=== PATIENT | male | born 1930 | race Caucasian/White ===

== ENCOUNTER 2017-01-13 10:33 | Inpatient (IN) | payer OTHER ==
[~2017-01-13] VITALS: Ht 180.3 cm; Wt 82.1 kg
[~2017-01-13 10:33] MED LIST: ALPRAZOLAM 0.0.25 M1 PO; ALPRAZOLAM 0.0.25 MG PO; ASPIRIN EC81 M1 PO; ATORVASTATIN CA40 MG PO; BYSTOLIC 5 MG5 MG PO; COCET PLUS TAB1 EACH PO; COLACE100 MG PO; ETODOLAC500 MG; FEVERALL650 MG RECTAL; FINASTERIDE5 MG PO; FISH OIL 1,001000 M2 PO; FUROSEMIDE 40 M40 M1 PO; GEMFIBROZIL 60600 MG PO; GLUCOPHAGE1000 MG; HCTZ; HYDROCHLOROTH12.5 M1 PO; HYDROCODON-ACE1 EACH; HYTRIN 5 M5 MG/1 CAP PO; KEFLEX500 MG PO; LACRILUBE; LASIX 40 MG TAB40 M2 PO; LEVOBUNOLOL 0.5%5 M1 OPHTHALMIC; LISINOPRIL-HCT1 EACH PO; LISINOPRIL2.5 MG PO; LISINOPRIL20 MG PO; LISINOPRIL40 MG PO; LOPID600 MG; LUMIGAN2.5 M1 INTRAOCULR; LUMIGAN2.5 ML; MILK OF MA2400 MG/10 PO; ONGLYZA5 MG; ONGLYZA5 MG PO; PRESERVISION T1 EACH PO; PROSCAR 5MG TABL5 M1 PO; REFRESH LACRI-3.5 GM INTRAOCULR; REFRESH LIQUIGEL; REFRESH OPTIVE10 M1 INTRAOCULR; TERAZOSIN HCL10 MG PO; TOPROL XL25 MG PO; TRADJENTA5 MG PO; TYLENOL325 MG PO; ULTRAM 50MG TAB50 MG PO; XALATAN2.5 ML OPHTHALMIC; XANAX 0.5 MG0.5 MG PO; ZOCOR 20 MG TAB20 M1; ZOCOR20 MG PO; ZOLOFT 50 MG TA50 M1 PO; ZOLOFT50 MG PO
[2017-01-13 15:00] VITALS: BP 106/50
--- NOTE | 2017-01-13 16:47 | NUR ---
ASSUMMED CARE OF PT UPON ADMISSION TO UNIT, PT ALERT AND ORIENTED, [place] AND HAS VISUAL PROBLEMS, PT DENIES PAIN, PT HAS WEAKNESS IN ALL EXTREMITIES BUT WORSE ON LEFT SIDE, PT HAS SKIN TEAR ON LEFT ARM, DRESSING CHANGED, BRUISING NOTED, GB WALKER, ALARMS ON FOR SAFETY, WAS INCONTINENT OF SMALL AMOUNT OF STOOL AND HAD STOOL ON TOILET, PT TRANSFERS WITH MOD ASSIST GB WALKER, EVALS DONE BY OT AND PT, ADMISSION ASSESSMENT COMPLETE, PT NOTED TO HAVE OCCASIONAL COUGH, HOURLY ROUNDING COMPLETED, WILL MAYNORNUE TO MONITER.
[2017-01-13 19:50] VITALS: BP 138/61
--- NOTE | 2017-01-14 01:32 | NUR ---
ASSUMED CARE @ 1922-01/13-MONDAY.SITS IN RECLINER WATCHING TV.WEARS ONLY RIGHT HEARING AID BUT STILL DIFFICULT TO COMMUNICATE W/ PATIENT DUE TO HEARING LOSS-LEFT EAR.CLAIMS HIS LEFT HEARING AID IS BROKEN & AT HOME.EDEMA-+1 PITTING LEFT ANKLE & LEFT FOOT.MEPILEX DRSG LEFT FOREARM.SEE PAIN MANAGEMENT @ 2013. TAKES PILLS WHOLE ONE @ A TIME W/ H20.ON HOURLY ROUNDS.AWAKE FROM 1999 TO 2199.ASSISTED TO BED @ 2154.HOB UP.BED ALARM PUT ON @ 2154.URINAL W/IN REACH.
--- NOTE | 2017-01-14 05:38 | NUR ---
SLEEPING SINCE 2300.USED URINAL X4.TOOK ONE PACKAGE RITZ PEANUT BUTTER CRACKERS W/ 120 ML APPLE JUICE HS SNACKS.TURNS SELF @ NIGHT.
[2017-01-14 05:50] LABS: HEMOGLOBIN 10.7 gm/dL (14.0-18.0); MCH 31.6 pg (26.0-34.0); MCHC 33.3 g/dL (28.0-37.0); MCV 94.7 fL (80.0-100.0); MPV 8.5 fl. (7.2-11.1); RBC 3.38 mil/uL (4.50-6.00); RDW-CV 13.8 % (10.5-14.5); WBC 5.5 thou/uL (4.0-11.0)
[2017-01-14 05:58] LABS: POTASSIUM 4.7 mmol/L (3.5-5.1)
[2017-01-14 08:00] VITALS: BP 138/58
--- NOTE | 2017-01-14 18:15 | NUR ---
ASSUMMED CARE OF PT AT 0730, PT ALERT AND ORIENTED, VERY [place] AND HAS DECREASED VISION, PT TRANSFERS WITH MOD ASSIST OF 1, NEEDS LIFTING ASSIST AND STEADYING ASSIT, CUEING, PT DENIES PAIN THIS SHIFT, EDEMA IN LE NOTED, PT DENIES NAUSEA AND TAKING FOOD AND FLUIDS WELL, PARTICIPATED IN ALL THERAPIES, PT QUESTIONING HIS AM EYE DROPS, STATES HE SHOULD BE GETTING AN EYE DROP EVERY MORNING, AND DAUGHTER CALLED AND NOTED THAT TIMOLOL HAD NOT BEEN ORDERED FOR PT, ORDER RECIEVED, REQUESTED FAMILY TO BRING IN EYE DROP, BROUGHT IN THIS PM BUT VERY LITTLE IN BOTTLE, FAMILY REQUESTS THAT PHARMACY SUPPLY EYE DROP STARTING ON MONDAY, MESSAGE SENT TO PHARMACY, FAMILY ALSO CONCERNED TO WHY PT ON DIABETIC DIET HE HAD BEEN ON REGULAR DIET, FAMILY STATED HIS BLOOD SUGARS WERE ALL NORMAL OVER THE LAST WEEK AND JUST HIGH LAST EVENING, EXPLAINED TO FAMILY IMPORTANCE OF DIET FOR SUGAR CONTROL, FAMILY WOULD LIKE TO SPEAK WITH CIGARETTE VENDOR, WILL LEAVE MESSAGE FOR CIGARETTE VENDOR TO CONTACT FAMILY, HOURLY ROUNDING COMPLETED, ASSESSMENT COMPLETE, WILL CONTINUE TO MONITER.
[2017-01-14 20:00] VITALS: BP 132/56
--- NOTE | 2017-01-15 05:24 | NUR ---
ASSUMED CARES AT 1920. PT ALREADY IN BED. ALERT AND ORIENTED. PLEASANT. [place]. DENIES ANY PAIN. TAKES PILLS ONE AT A TIME WITH WATER. HS SNACK GIVEN. MEPILEX TO LEFT FOREARM SKIN TEAR INTACT. PT USED URINAL AND RN EMPTIED. SLEPT MOST OF THE NIGHT. NO COMPLAINTS. CALL LIGHT IN REACH AND BED ALARM ON.
[2017-01-15 08:10] VITALS: BP 133/62
--- NOTE | 2017-01-15 16:40 | NUR ---
ASSUMED CARE AT 0730 PATIENT ALERT/ORIENTED/FORGETFUL, [place] WEARS HEARING AIDE TO RIGHT EAR, BLIND IN RIGHT EYE. UP WITH MOD ASSIST OF ONE AND WALKER, WALKED IN HALLWAY X3 THIS SHIFT, SPONGE BATH TAKEN THIS AM AND DRESSED. BED/CHAIR ALARMS IN PLACE, TO DINING ROOM FOR MEALS. HOURLY ROUNDING COMPLETED. CALL LIGHT IN REACH. CONTINUE WITH CURRENT PLAN OF CARE
[2017-01-15 20:00] VITALS: BP 153/46
[2017-01-16 04:13] LABS: HEMATOCRIT 32.6 % (42.0-52.0); HEMOGLOBIN 10.8 gm/dL (14.0-18.0); MCH 31.2 pg (26.0-34.0); MCV 94.6 fL (80.0-100.0); MPV 8.3 fl. (7.2-11.1); RBC 3.45 mil/uL (4.50-6.00); WBC 6.7 thou/uL (4.0-11.0)
[2017-01-16 04:32] LABS: CALCIUM 8.1 mg/dL (8.5-10.1); MAGNESIUM 1.7 mg/dL (1.8-2.4); POTASSIUM 4.9 mmol/L (3.5-5.1)
--- NOTE | 2017-01-16 06:17 | NUR ---
ASSUMED CARES AT 1915. PT ALREADY IN BED. ALERT AND ORIENTED. [place]. DENIES ANY PAIN, SOA, DEE, N/V. TAKES PILLS ONE BY ONE WITHOUT ANY ISSUES. PT USED URINAL BUT DID HAVE URINARY ACCIDENTS X 2 WHICH WERE MOST LIKELY DUE TO SPILLING URINAL. RN ASSISTED WITH CHANGING. LEFT FOREARM MEPILEX INTACT. DID NOT GET UP DURING THE NIGHT. USED CALL LIGHT APPROPRIATELY. BED ALARM ON.
[2017-01-16 07:30] VITALS: BP 146/62
--- NOTE | 2017-01-16 14:40 | NUR ---
Nutrition: Consult received for DM diet educ for pt's family. Family was not in room at time of visit today. Left handouts for family to peruse. Spoke with pt about his BG. He stated it usually runs 80s to 130. He does not restrict his diet much; only restriction is not adding table sugar to things, so he uses aspartame instead. Per RN, family has some concerns about pt's BG and diet. RD will attempt to see pt's family again this week when they are visiting. Handouts were left for them on basic CHO education. Pt appears at low nutrition risk at this time. Will follow weekly.
--- NOTE | 2017-01-16 15:35 | NUR ---
ASSUMED CARE AT 0730. ALERT ORIENTED, PLEASANT COOPERATIVE. HX OF CVA L SIDE WEAKNESS. TRANSFERS WITH SBA G BELT WALKER. FROM BED TO W/C NEEDS CUES FOR SAFETY. USES CALL LIGHT APPROPRIATELY FOR ASSIST. BED AND CHAIR ALARM FOR PT. SAFETY. FEEDS SELF WITH SET UP OPEN CONTAINERS, HX OF MACULAR DEGENERATION ALSO [place] BUT HAS BEEN ABLE TO UNDERSTAND THIS STAFF WHEN SPOKEN TO OR ASKED QUESTIONS. DENIES PAIN OR REQUESTS. TAKES MEDS ONE AT A TIME WITH WATER WITHOUT DIFFICULTY. PARTICIPATING IN THERAPIES. FAMILY HERE VISITING AT LUNCH AND THIS AFTERNOON.
--- NOTE | 2017-01-16 17:08 | NUR ---
SW met with pt to complete initial assessment, introduce self, and SW role. Pt dtr Thu Hanson [phone] and son in law were present; they live in [place]. Pt was alert and oriented to self, not talkative. Pt dtr answered the questions to help complete the assessment. Pt has a RW. Pt has had HH services years ago. Pt signed consent form. Pt/pt family goal for pt to return home with pt . SW to continue to follow to assist with safe dc planning.
[2017-01-16 21:53] VITALS: BP 158/63
--- NOTE | 2017-01-17 05:12 | NUR ---
ASSUMED CARE 1919. PT ALERT AND ORIENTED. PLEASANT. DENIES ANY NEEDS FOR PAIN MED. HE IS A MOD ASSIST WITH GAIT BELT AND WALKER. SLIGHT LIFTING ASSIST. UP TO BATHROOM DURING THE NIGHT. PT DOES NOT WANT TO USE URINAL. TAKES PILLS WITHOUT ISSUES. NO COMPLAINTS. USE CALL LIGHT APPROPRIATELY. BED ALARM ON.
[2017-01-17 08:16] VITALS: BP 132/60
--- NOTE | 2017-01-17 10:30 | NUR ---
RICARDO received message from Tanya with [facility] requesting an update/review today by noon. RICARDO called and left a message for Tanya that team conference is on Monday and SW would have more information at that time. RICARDO faxed info for initial review and RICARDO will continue to follow to assist with safe dc planning.
[2017-01-17 12:07] VITALS: BP 145/53
--- NOTE | 2017-01-17 12:43 | NUR ---
ASSUMED CARE AT 0730. ALERT ORIENTED,PLEASANT COOPERATIVE. HX OF CVA L SIDE WEAKNESS. SITTING UP IN RECLINER AT BEDSIDE FOR BREAKFAST. FEEDS SELF APPETITE GOOD. SET UP PT. IS BLIND RT. EYE MACULAR DEGENERATION L EYE. TRANSFERS WITH SBA G BELT WALKER CUES FOR DIRECTION. USES CALL LIGHT FOR ASSIST AND HAS BED CHAIR ALARM FOR PT. SAFETY. ABLE TO MOVE ALL EXTREMITIES COSMETICIAN EQUAL. DENIES PAIN OR REQUESTS. TAKES MEDS WITH WATER ONE AT A TIME WITHOUT DIFFICULTY. PARTICIPATING IN THERAPIES. AMBULATES TO BR TO VOID IN TOILET ABLE TO DO HYGEINE AND CLOTHING ADJUSTMENTS.
--- NOTE | 2017-01-17 13:11 | NUR ---
AT 1207 PT. HAD C/O NUMBNESS L ARM WHICH IS HIS WEAK SIDE. 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 ABLE TO RAISE L ARM ABOVE HIS HEAD SLOWLY WITHOUT DIFFICULTY. DENIES PAIN ANYWHERE. VS WERE 145/55 PULSE 55 AND REGULAR O2 SAT 98% RA. FEEDING SELF LUNCH APPETITE GOOD. DAUGHTER CARMELA HERE UPDATED HER ON PT. C/O NUMBNESS. DR. LOZANO NOTIFIED OF PT. STATUS NO NEW ORDERS CONTINUE TO MONITOR. SENT PTS. SUPPLY OF TIMOPTIC HOME WITH CARMELA TODAY. BY 1245 PT. STATES ARM FEELS DECREASED NUMBNESS BACK TO NORMAL. DAUGHTER HERE AT THAT TIME.
--- NOTE | 2017-01-17 17:46 | NUR ---
PT. CONTINUED TO PARTICIPATE IN THERAPIES THIS AFTERNOON. NO FURTHER C/O NUMBNESS L ARM. 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 HAS HAD VISITORS THIS AFTERNOON UP IN RECLINER AFTER THERAPIES. TO DR ALEJANDRE W/C FOR SUPPER MEAL.
[2017-01-17 19:45] VITALS: BP 131/42
[2017-01-18 01:36] LABS: URINE BILIRUBIN NEGATIVE (Negative); URINE BLOOD NEGATIVE (Negative); URINE CLARITY CLEAR; URINE COLOR YELLOW; URINE GLUCOSE-RANDOM NEGATIVE (Negative); URINE KETONES NEGATIVE (Negative); URINE LEUKOCYTES-REFLEX NEGATIVE (Negative); URINE NITRITE-REFLEX NEGATIVE (Negative); URINE PROTEIN NEGATIVE (Negative); URINE SPECIFIC GRAVITY <= 1.005 (1.005-1.030); URINE UROBILINOGEN 0.2 E.U./dl (0.2-1.0)
[2017-01-18 04:55] LABS: HEMATOCRIT 31.6 % (42.0-52.0); HEMOGLOBIN 10.6 gm/dL (14.0-18.0); MCH 31.4 pg (26.0-34.0); MCHC 33.5 g/dL (28.0-37.0); MCV 93.7 fL (80.0-100.0); MPV 8.1 fl. (7.2-11.1); RBC 3.38 mil/uL (4.50-6.00); RDW-CV 13.4 % (10.5-14.5); WBC 7.4 thou/uL (4.0-11.0)
[2017-01-18 05:19] LABS: CALCIUM 8.1 mg/dL (8.5-10.1)
--- NOTE | 2017-01-18 05:19 | NUR ---
ASSUMED PT CARE AT 1930. PT ALERT AND ORIENTED, PLEASANT AND COOPERATIVE WITH CARES. HX OF CVA WITH LEFT SIDE WEAKNESS. TWO TYLENOL AT HS FOR RIGHT HIP PAIN. PT IS BLIND IN RIGHT EYE AND HAS MACULAR DEGENERATION IN LEFT EYE. PT UP WITH MOD ASSIST, GAIT BELT AND WALKER. TAKES PILLS WHOLE ONE AT A TIME WITH WATER. USES CALL LIGHT APPROPRIATELY. CALL LIGHT AND FREQUENTLY USED ITEMS WITHIN REACH. BED ALARM ON FOR SAFETY. HOURLY ROUNDING IN PROGRESS, WILL CONTINUE TO MONITOR.
[2017-01-18 07:38] VITALS: BP 130/55
--- NOTE | 2017-01-18 13:29 | CON ---
[address] [address] CONSULTATION Name: LIVAN GONSALES Room: [address] IN M.R.#: [id number] Admission: 01/13/17 Attend Phys: Marissa Quintana DO Discharge: Date of : 32 Report #: [id number] THIS REPORT FOR: //name// CC: Lukas Quintana This is an 86-year-old right-hand dominant male who is status post cerebrovascular accident with residual aphasia, dysphagia, and hemiparesis. He is also blind in the right eye, hard of hearing and has macular degeneration in the left eye. His previous level of function was modified independent to independent with activities of daily living and current level of function is [id number] assistance of 1-2 depending on therapy, activity and time of day. He does have multiple medical comorbidities requiring daily medical care. Estimated length of stay is 19-21 days with discharge disposition to the home setting where he has supervision and assistance of his spouse and multiple family members. He does live in a house. Medical prognosis is good. Rehabilitation prognosis is good. Physical therapy will see the patient 60-90 minutes per day, 5 days per week, working on upper and lower body strength, balance, coordination, navigation. Occupational therapy will work with the patient 60-90 minutes per day, 5 days per week, working on upper and lower body strength, balance, coordination, navigation, bathing, dressing, and toileting. Speech and language pathology will work with the patient on memory, comprehension, dysphagia and aphasia, this will be 30-90 minutes per day, 5 days per week. This is an overall plan of care, may change from time to time, we will team weekly and make changes to plan of care as needed. <ELECTRONICALLY SIGNED> By: Marissa Quintana DO 01/18/17 1329 [id number] [id number] Quintana DO /nt
--- NOTE | 2017-01-18 15:45 | NUR ---
ASSUMED CARE AT 0730 PATIENT ALERT/ORIENTED, VERY [place] HAS RIGHT HEARING AIDE IN PLACE, CALL LIGHT IN REACH, BED/CHAIR ALARMS IN PLACE, UP WITH ASSIST OF ONE WITH GAIT BELT/WALKER. PARTICIPATED IN ALL THERAPIES TODAY, HOURLY ROUNDING COMPLETED, TO DINING ROOM FOR MEALS. CONTINUE WITH CURRENT PLAN OF CARE
[2017-01-18 20:58] VITALS: BP 132/60
--- NOTE | 2017-01-19 05:45 | NUR ---
ASSUMED PT CARE AT 1930. PT ALERT AND ORIENTED X4, POLITE AND COOPERATIVE WITH CARES. PT VERY [place]. HX OF CVA WITH LEFT SIDE WEAKNESS. DENIES PAIN. PT IS BLIND IN RIGHT EYE AND HAS MACULAR DEGENERATION IN LEFT EYE. PT UP WITH MOD ASSIST, GAIT BELT AND WALKER. TAKES PILLS WHOLE ONE AT A TIME WITH WATER WITHOUT DIFFICULTY. USES CALL LIGHT APPROPRIATELY. CALL LIGHT AND FREQUENTLY USED ITEMS WITHIN REACH. BED ALARM ON FOR SAFETY. HOURLY ROUNDING IN PROGRESS, WILL CONTINUE TO MONITOR.
[2017-01-19 07:38] VITALS: BP 128/56
--- NOTE | 2017-01-19 11:18 | NUR ---
RICARDO called pt dtr Thu Hanson [phone] to review team conference summary and discuss dc planning options specifically the level of assistance that would be available to pt at home. Pt dtr did not answer so SW left detailed message asking for return call. Nurse informed RICARDO that nurse spoke with pt family about team wanting another week for pt to continue rehab and then to reassess pt length of stay during team conference on Monday. RICARDO called pt Karuna and left a message asking for return call. Karuna called SW back and RICARDO discussed plans and asked about her ability to be able to care for pt. Karuna said she is 82, and not able to do any lifting of pt if pt were to need that. RICARDO reviewed PT, OT, ST reports from team: Pt needing min assist to mod assist with bed mobility and transfers to and from bed/chair/wc, pt needing min assist with walking with a front wheeled walker, pt needing mod assist with stairs; pt tried 3 stairs with therapy. Also, with OT, pt needing min to mod assist with toileting, mod assist with toilet transfers, supervision grooming, mod assist with bathing, min assist with tub/shower transfer, min assist with upper body dressing, and max assist with lower body dressing. ST reported pt needing min assist with comprehension, supervision with expression, min assist with problem solving, and min assist with memory. Pt barriers to dc are weakness, balance, and needing cues to perform tasks. Pt explained that she does not feel that she could care for the pt at this point and that pt was independent with ADLs and mobility prior to this second stroke. Pt said that she would try to find DME that insurance does not cover like toilet seat riser and grab bars to try to prepare for a safer environment as needed but that she would hope that pt could be able to be closer to independent with tasks prior to dc home; she said she saw him in therapy yesterday and that she knew she would not be able to provide as much assistance as he needed since he was unable to go to the bathroom on his own, etc. SW to continue to follow to assist with safe dc planning. SW to fax above information to pt insurance for review/update as needed.
--- NOTE | 2017-01-19 16:14 | NUR ---
ASSUMED CARE AT 0730 PATIENT ALERT/ORIENTED, VERY [place] AND BLIND IN RIGHT EYE, ABLE TO MAKE ALL NEEDS KNOWN, NO COMPLAINTS OF PAIN THIS SHIFT, UP WITH ASSIST OF ONE WITH GAIT BELT AND WALKER, PARTICIPATED IN ALL THERAPIES TODAY, TO DINING ROOM FOR MEALS, BED/CHAIR ALARMS IN PLACE, HOURLY ROUNDING COMPLETED. CONTINUE WITH CURRENT PLAN OF CARE
[2017-01-19 20:32] VITALS: BP 131/50
--- NOTE | 2017-01-19 22:07 | NUR ---
ASSUMED CARE AT 1930. PATIENT S/P CVA. WAS IN RECLINER AT BEGINNING OF SHIFT, ASSISTED TO BED. UP WITH ONE, GAIT BELT, WALKER. VERY LOWER BRULE. BLIND IN RT EYE. MAKES NEEDS KNOWN. ADMINISTERED HS EYE GTTS PER SELF. MEDICATED FOR PAIN WITH APAP. CHANGED INTO GOWN AT HS. WILL HELP WITH URINAL NEEDED. HAD HS SNACK OF BRE CRACKERS AND SHERBET. HOURLY ROUNDS CONTINUE, CALL LITE IN REACH. BED ALARM ON.
--- NOTE | 2017-01-20 05:56 | NUR ---
SLEPT MOST OF THE NIGHT EXCEPT TO VOID. AMBULATED TWICE TO BATHROOM WITH ASSIST. PREFERS GOING TO TOILET OVER USING URINAL. EYE GTTS GIVEN PER HIS REQUEST, SEE MAR. TAKES PILLS WHOLE WITH WATER. NO FURTHER C/O. HOURLY ROUNDS CONTINUE. BED ALARM ON. CALL LITE IN REACH. WATCHING NEWS ON TV.
[2017-01-20 07:30] VITALS: BP 135/61
--- NOTE | 2017-01-20 18:25 | NUR ---
PT PARTICIPATED IN ALL THERAPIES. PT REPORTS PAIN IS WELL CONTROLLED WITH PAIN MEDS. PT HAS GOOD APPETITE.
[2017-01-20 20:30] VITALS: BP 131/41
--- NOTE | 2017-01-21 05:30 | NUR ---
ASSUMED CARES AT 1920. ALERT AND ORIENTED. PLEASANT. TYLENOL GIVEN FOR RIGHT HIP PAIN. HE IS A MIN ASSIST WITH GAIT BELT AND WALKER. UP TO BATHROOM FEW TIMES DURING THE NIGHT. RN ASSISTED WITH ONE SIDED DRESSING. HS SNACK GIVEN. SLEPT OFF AND ON. CALL LIGHT IN REACH. BED ALARM ON.
[2017-01-21 08:00] VITALS: BP 130/46
[2017-01-21 08:39] LABS: HEMATOCRIT 34.1 % (42.0-52.0); HEMOGLOBIN 11.5 gm/dL (14.0-18.0); MCH 31.7 pg (26.0-34.0); MCHC 33.8 g/dL (28.0-37.0); MCV 93.7 fL (80.0-100.0); MPV 8.4 fl. (7.2-11.1); RBC 3.64 mil/uL (4.50-6.00); WBC 7.2 thou/uL (4.0-11.0)
--- NOTE | 2017-01-21 17:08 | NUR ---
pt has participated with therapies and calls for assist to bathroom. pt ambulates with walker,gaitbelt and min assist of 1. pt continent of urine and has had bm today. pt denies pain. pt eats meals after tray set up due to poor vision.pt has visited with family this afternoon.pt continues to progress towards goals and hourly rounding continues.
[2017-01-21 20:31] VITALS: BP 154/62
--- NOTE | 2017-01-22 05:25 | NUR ---
ASSUMED PT CARE AT 1920. PT ALERT AND ORIENTED, POLITE AND COOPERATIVE WITH CARES. PT IS EXTREMELY [place], WEARS ONE HEARING AID. TYLENOL AT HS FOR RIGHT HIP PAIN. HS SNACK GIVEN. UP WITH MIN ASSIST WITH GAIT BELT AND WALKER. USES CALL LIGHT APPROPRIATELY. BED ALARM ON FOR SAFETY. CALL LIGHT AND FREQUENTLY USED ITEMS WITHIN REACH. HOURLY ROUNDING IN PROGRESS, WILL CONTINUE TO MONITOR.
[2017-01-22 08:01] VITALS: BP 145/57
--- NOTE | 2017-01-22 15:51 | NUR ---
PT HAS EATEN MEALS IN DINNINGROOM AND AMBULATES WITH WALKER AND MIN ASSIST OF 1 WITH GAITBELT.PT AMBULATED PAST NURSING STATION WITH FAIRLY STEADY GAIT. PRN FOR RT. HIP PAIN GIVEN X2 WITH GOOD EFFECT AND HEATING PAD APPLIED THIS AFTERNOON. PT VOIDS WELL AND CALLS FOR ASSIST TO BATHROOM. PT TOLERATES MEALS AND EATS WELL. AND DAUGHTER HERE TO VISIT THIS AFTERNOON. CONCERNED ABOUT PT COMMING HOME TOO SOOM SHE REPORTS HIM FALLING 4 TIMES RECENTLY AND SHE IS NOT ABLE TO HELP HIMWITH AMBULATION. AND DAUGHTER ALSO CONCERNED ABOUT PT WEATHER PT IS RECEIVING SHOWERS WHILE HERE. NURSING HAS REVIEWED OT NOTES AND WAS ABLE TO ASSURE FAMILY THAT PT HAS SHOWERED AT LEAST 2 TIMES AND RECEIVED ASSIST WITH BATHING AT SINK WITH OT AND DIRECTIONS.PT IS CONTINENT OF B+B AND WEARS REGULAR CLOTHING AND IS ABLE TO SNAP BUTTONS,ZIP ZIPPER AND BUTTON JEANS WITH SOME EXTRA TIME. PT IS [place] WITH BIL[place] HEARING AIDS AND UNDERSTANDS DIRECTIONS AND IS APPROPIATE. PT PROGRESSES TOWARDS GOALS AND HOURLY ROUNDING CONTINUES.
[2017-01-22 19:45] VITALS: BP 115/64
--- NOTE | 2017-01-23 05:36 | NUR ---
ASSUMED PT CARE AT 1930. PT ALERT AND ORIENTED, POLITE AND COOPERATIVE WITH CARES. PT IS EXTREMELY [place], ONLY WEARS ONE HEARING AID. NO PRN PAIN MEDS THIS SHIFT. HEATING PAD TO LEFT SHOULDER. HS SNACK GIVEN. UP WITH MIN ASSIST, GAIT BELT AND WALKER. USES CALL LIGHT APPROPRIATELY. BED ALARM ON FOR SAFETY. CALL LIGHT AND FREQUENTLY USED ITEMS WTIHIN REACH. HOURLY ROUNDING IN PROGRESS, WILL CONTINUE TO MONITOR.
[2017-01-23 07:30] VITALS: BP 131/51
--- NOTE | 2017-01-23 16:41 | NUR ---
PT PARTICATES IN ALL THERAPIES. DENIES PAIN. GOOD APPETITE.
[2017-01-23 20:00] VITALS: BP 127/47
--- NOTE | 2017-01-24 05:16 | NUR ---
ASSUMED PT CARE AT 1930. PT ALERT AND ORIENTED, POLITE AND COOPERATIVE WITH CARES. 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 PRN TYLENOL FOR RIGHT HIP PAIN. HEATING PAD TO RIGHT SHOULDER AND THEN TO RIGHT HIP. MEPILEX TO LEFT FOREARM SKIN TEAR C/D/I. HS SNACK GIVEN. UP WITH MIN ASSIST, GAIT BELT AND WALKER. USES CALL LIGHT APPROPRIATELY. BED ALARM ON FOR SAFETY. CALL LIGHT AND FREQUENTLY USED ITEMS WITHIN REACH. HOURLY ROUNDING IN PROGRESS, WILL CONTINUE TO MONITOR.
[2017-01-24 08:09] VITALS: BP 115/74
--- NOTE | 2017-01-24 18:30 | NUR ---
HEATING PAD TO R HIP AND TYLENOL GIVEN WITH STATED RELIEF ON REASSESSMENT FOR HIP PAIN. PT C/O FEELING CHAFED IN GROIN, BARRIER CREAM GIVEN. PT UP WITH MIN ASSIST USING GAIT BELT AND WALKER. PT ABLE TO MAKE NEEDS KNOWN, CALL LIGHT IN REACH
[2017-01-24 20:30] VITALS: BP 107/56
--- NOTE | 2017-01-24 20:30 | NUR ---
SITTING UP IN CHAIR AND WATCHING TV. DENIES DISCOMFORT. TOOK MEDS WHOLE ONE AT A TIME WITH WATER. SNACK PROVIDED.
[2017-01-25 08:31] VITALS: BP 138/85
[2017-01-25 15:12] LABS: HEMATOCRIT 33.5 % (42.0-52.0); HEMOGLOBIN 11.3 gm/dL (14.0-18.0); MCH 31.7 pg (26.0-34.0); MCHC 33.6 g/dL (28.0-37.0); MCV 94.4 fL (80.0-100.0); MPV 8.5 fl. (7.2-11.1); RBC 3.55 mil/uL (4.50-6.00); RDW-CV 13.9 % (10.5-14.5); WBC 6.6 thou/uL (4.0-11.0)
[2017-01-25 15:30] LABS: ALBUMIN 3.7 g/dL (3.4-5.0); CALCIUM 8.2 mg/dL (8.5-10.1); CREATININE 1.2 mg/dL (0.6-1.3); POTASSIUM 5.7 mmol/L (3.5-5.1); TOTAL BILIRUBIN 0.3 mg/dL (<0.1-1.0)
--- NOTE | 2017-01-25 15:50 | NUR ---
Team conference summary review note: RICARDO met with pt, pt son in law and pt grandson in the room. SW reviewed team conference summary with pt and pt family. Plan for team to reassess pt length of stay during team conference on Thursday 02/01. RICARDO explained SW sending update to pt insurance who will want a dc plan soon. Possible need for more assistance in the home for pt and pt or for pt/pt family to think about intermodal customer service care or assisted living facility in the future. Pt and pt family understanding and in agreement with plan. Pt dtr Thu also discussed with SW the dc planning and RICARDO reviewed team conference summary again with pt dtr. SW to continue to follow to assist with safe dc planning.
--- NOTE | 2017-01-25 18:46 | NUR ---
ASSUMED CARE AT 0730 PATIENT ALERT/ORIENTED, PAIN MEDS GIVEN FOR RIGHT HIP PAIN WITH GOOD RELIEF, HEATING PAD TO RIGHT HIP, UP WITH ASSIST OF ONE AND WALKER/GAIT BELT, BED/CHAIR ALARMS IN PLACE, HOURLY ROUNDING COMPLETED, CALL LIGHT IN REACH. PARTICIPATED IN ALL THERAPIES TODAY. CONTINUE WITH CURRENT PLAN OF CARE
[2017-01-25 20:13] VITALS: BP 132/55
--- NOTE | 2017-01-25 21:47 | NUR ---
ASSUMED CARE AT 1930. PATIENT S/P CVA. VERY [place]. RESTING IN RECLINER UNTIL AROUND 2099. UP WITH MOD LIFTING ASSIST FROM RECLINER. AMB TO TOILET WITH GAIT BELT AND WALKER. NEEDED LIFTING ASSIST FROM TOILET, BUT PATIENT ABLE TO ADJUST CLOTHING. NEEDS ASSIST WITH ONE LEG INTO BED. TOOK OWN TEETH OUT AND PLACED IN WATER WITH CLEANSING TABLET. WILL REMOVE OWN HEARING AIDES, REFUSES TO PUT THEM IN A CONTAINER. EYE GTTS GIVEN PER HOME SCHEDULE, SEE APR. HEATING PAD TO RIGHT HIP. TOOK SHERBET AND BRE CRACKERS FOR HS SNACK. HOURLY ROUNDING CONTINUES. CALL LITE IN REACH. BED ALARM ON.
--- NOTE | 2017-01-26 05:44 | NUR ---
SLEPT MOST OF THE NIGHT. UP TO VOID PER TOILET ONCE. STILL NEEDS MOD LIFTING ASSIST TO RISE FROM BED OR TOILET. ONCE STANDING ABLE TO AMBULATE ADEQUATELY USING WALKER. TURNS SELF. NEEDS HELP GETTING LEFT LEG INTO BED. DENIES PAIN. HOURLY ROUNDS CONTINUE. BED ALARM ON. CALL LITE IN REACH.
[2017-01-26 06:45] LABS: ALBUMIN 3.3 g/dL (3.4-5.0); CALCIUM 7.9 mg/dL (8.5-10.1); TOTAL BILIRUBIN 0.3 mg/dL (<0.1-1.0)
[2017-01-26 08:59] VITALS: BP 109/45
--- NOTE | 2017-01-26 17:48 | NUR ---
ASSUMED CARE AT 0730 PATIENT ALERT/ORIENTED, UP WITH ASSIST OF ONE AND WALKER, TYLENOL GIVEN THIS AM FOR RIGHT HIP PAIN WITH GOOD RELIEF, ALSO USES HEATING PAD. HOURLY ROUNDING COMPLETED, CALL LIGHT IN REACH, BED/CHAIR ALARMS IN PLACE. PARTICIPATED IN ALL THERAPIES TODAY, TO DINING ROOM FOR MEALS. CONTINUE WITH CURRENT PLAN OF CARE
[2017-01-26 22:00] VITALS: BP 126/44
--- NOTE | 2017-01-27 04:47 | NUR ---
ASSUMED PT CARE AT 1930. PT S/P CVA. VERY [place] BUT HAS BILATERAL HEARING AIDS. PT SITTING UP WATCHING TELEVISION UNTIL 0. UP WITH MOD LIFTING ASSIST FROM RECLINER. AMBULATES TO TOILET WITH GAIT BELT AND WALKER. NEEDS LIFTING ASSIST FROM TOILET BUT ADJUSTS OWN CLOTHING. PT CAN LIFT BOTH LEGS INTO BED. EYE GTTS GIVEN PER HOME SCHEDULE. HEATING PAD TO RIGHT HIP. HS SNACK GIVEN. CALL LIGHT AND FREQUENTLY USED ITEMS WITHIN REACH. BED ALARM ON FOR SAFETY. HOURLY ROUNDING IN PROGRESS, WILL CONTINUE TO MONITOR.
--- NOTE | 2017-01-27 05:37 | NUR ---
PT UP ONCE TO BATHROOM AT 0500 WANTED TO STAY UP FOR THE DAY. MORNING MEDS GIVEN ALONG WITH PRN TYLENOL PER PT REQUEST. PT WATCHING TELEVISION. BED ALARM FOR SAFETY. HOURLY ROUNDING IN PROGRESS, WILL CONTINUE TO MONITOR.
[2017-01-27 08:00] VITALS: BP 115/55
--- NOTE | 2017-01-27 11:41 | NUR ---
AM ASSESSMENT AND VITAL SIGNS COMPLETED DOCUMENTED. PT TRANSFERRED FROM WHEELCHAIR TO RECLINER WITH STAND BY ASSIST. NO C/O PAIN OR DISCOMFORT THIS AM. PT CONTINUES TO PROGRESS. FALL PRECAUTIONS AND HOURLY ROUNDING OBSERVED.
[2017-01-27 20:22] VITALS: BP 133/65
--- NOTE | 2017-01-27 23:30 | NUR ---
ASSUMED CARE AT 1929. S/P CVA. PATIENT IN DINING ROOM, AND WALKED FROM THERE TO HIS ROOM. ASSISTED WITH HS CARES AT 2129. UP WITH MOD LIFTING ASSIST TO RISE FROM RECLINER AND TO RISE FROM TOILET, GAIT BELT AND WALKER. VOIDS PER TOILET. ABLE TO ADJUST CLOTHES AND DO HYGIENE. TAKES PILLS WITH WATER. VERY [place]. MAKES NEEDS KNOWN. TURNS SELF. CALL LITE IN REACH. BED ALARM ON. HOURLY ROUNDING CONTINUES.
--- NOTE | 2017-01-28 06:21 | NUR ---
SLEPT MOST OF THE NIGHT UNTIL AROUND 0515. INSISTED ON GETTING UP AT THAT TIME. SITTING IN RECLINER. VOIDED PER TOILET. EXPLAINED THAT HE GETS THERAPY, HE IS SCHEDULED FIRST FOR OT. NOTE LEFT FOR THERAPIST THAT HE WANTS THERAPY EARLIER IF POSSIBLE. HOURLY ROUNDS CONTINUE. CALL LITE IN REACH.
[2017-01-28 07:59] VITALS: BP 105/49
--- NOTE | 2017-01-28 09:54 | NUR ---
AM ASSESSMENT AND VITAL SIGNS COMPLETED DOCUMENTED. PT WAS UP EARLY THIS AM AND HAS DONE ADL's WITH OT. PT IS INDEPENDENT WITH EATING AND HAS A GOOD APPETITE. NO C/O PAIN OR DISCOMFORT AT THIS TIME. FALL PRECAUTIONS AND HOURLY ROUNDING CONTINUE.
--- NOTE | 2017-01-28 18:00 | NUR ---
PT REMAINS STABLE AND WITHOUT COMPLAINTS. FAMILY CAME TO VISIT THIS AFTERNOON, THEY CONTINUE TO BE INVOLVED IN HIS TREATMENT AND PLAN OF CARE. PT AMBULATES SHORT DISTANCES WITHOUT DIFFICULTY, GAIT BELT AND WALKER USED FOR BALANCE.
[2017-01-28 20:00] VITALS: BP 148/53
--- NOTE | 2017-01-29 05:01 | NUR ---
ASSUMED CARES AT 1920. PT ALERT AND ORIENTED. PLEASANT. DENIES ANY PAIN. TAKES PILLS WITHOUT ISSUES. HE IS A MIN ASSIST WITH GAIT BELT AND WALKER. UP TO BATHROOM DURING THE NIGHT. DOES OWN CARES. SLEPT MOST OF THE NIGHT. NO COMPLAINTS. CALL LIGHT IN REACH AND BED ALARM ON.
[2017-01-29 08:05] VITALS: BP 161/82
--- NOTE | 2017-01-29 18:49 | NUR ---
ASSUMED CARE OF PATIENT AFTER MORNING REPORT. ALERT AND ORIENTED X4. ASSESSMENT COMPLETED AND IS CHARTED. VSS ON ROOM AIR. PATIENT HAS HAD NO COMPLAINTS OF PAIN OR NAUSEA THIS SHIFT. PATIENT ESCORTED TO THE DINING ROOM FOR LUNCH AND DINNER. HOURLY ROUNDS MAINTAINED. CALL LIGHT IS WITHIN REACH. NURSING WILL CONTINUE TO MONITOR.
[2017-01-29 20:00] VITALS: BP 128/53
--- NOTE | 2017-01-30 05:17 | NUR ---
ASSUMED PT CARE AT 1930. PT ALERT AND ORIENTED X4, POLITE AND COOPERATIVE WITH CARES. S/P CVA. PT IS VERY INUPIAT, WEARS HEARING AIDS BILATERALLY. DENIES PAIN. TAKES PILLS ONE AT A TIME WITH WATER WITHOUT DIFFICULTY. MOD LIFTING ASSIST WITH GAIT BELT AND WALKER, UP X1 OVERNIGHT TO BATHROOM TO VOID. CAN TURN SELF. PT SLEPT WELL OVERNIGHT. USES CALL LIGHT APPROPRIATELY. CALL LIGHT AND FREQUENTLY USED ITEMS WITHIN REACH. BED ALARM ON FOR SAFETY. HOURLY ROUNDING IN PROGRESS, WILL CONTINUE TO MONITOR.
[2017-01-30 07:38] VITALS: BP 129/51
--- NOTE | 2017-01-30 17:02 | NUR ---
ASSUMED CARE AT 0730. ALERT ORIENTED PLEASANT COOPERATIVE. HX OF CVA. DENIES REQUESTS OR PAIN FEEDS SELF WITH SET UP AND TAKES MEDS ONE AT A TIME WITH WATER WITHOUT DIFFICULTY. APPETITE GOOD. TRANSFERS WITH SBA G BELT WALKER AMBULATES TO BR TO VOID AND IS ABLE TO DO CLOTHING ADJUSTMENTS. USES CALL LIGHT APPROPRIATELY FOR ASSIST BED CHAIR ALARM FOR PT. SAFETY. FAMILY HERE VISITING AND FOOD BROUGHT IN THIS AFTERNOON AROUND 1400. VISITING IN DR LATER AFTERNOON. MEDICATED WITH TYLENOL FOR RT. HIP PAIN AT 1400. AMBULATED TO DR WITH WALKER AND G BELT TO VISIT WITH FAMILY.
[2017-01-30 20:00] VITALS: BP 126/52
--- NOTE | 2017-01-31 05:20 | NUR ---
ASSUMED CARES AT 1920. PT ALERT AND ORIENTED. PLEASANT. DENIES ANY PAIN. HE IS A MIN ASSIST WITH GAIT BELT AND WALKER. UP TO BATHROOM X 3 DURING THE NIGHT. DOES OWN CARES AND CLOTHING ADJUSTMENTS. USED CALL LIGHT APPROPRIATELY. SLEPT WELL OTHERWISE. NO COMPLAINTS.
[2017-01-31 08:00] VITALS: BP 134/60
--- NOTE | 2017-01-31 13:15 | NUR ---
AM ASSESSMENT AND VITAL SIGNS COMPLETED DOCUMENTED. PT HAS BEEN PLEASANT AND COOPERATIVE, PARTICIPATES WITH ALL THERAPIES. PRN TYLENOL GIVEN FOR RIGHT HIP DISCOMFORT AFTER PHYSICAL THERAPY, GOOD RELIEF OBTAINED. FALL PRECAUTIONS AND HOURLY ROUNDING OBSERVED.
[2017-01-31 20:01] VITALS: BP 132/75
--- NOTE | 2017-01-31 20:20 | NUR ---
SITTING UP IN RECLINER SLEEPING. AWAKENED FOR HS REASSESSMENT AND MED PASS. TOOK MEDS WHOLE ONE AT A TIME WITH WATER. SNACK PROVIDED.
--- NOTE | 2017-02-01 06:04 | NUR ---
RESTED QUIETLY ALL NIGHT. NO COMPLAINTS VOICED. HOURLY ROUNDING IN PROGRESS.
[2017-02-01 07:59] VITALS: BP 122/49
--- NOTE | 2017-02-01 13:41 | NUR ---
AM ASSESSMENT AND VITAL SIGNS COMPLETED DOCUMENTED. PT CONTINUES TO WORK WITH THERAPY AND CONTINUES TO MAKE PROGRESS. TEAM MEETING HELD TODAY, PT WILL BENEFIT FROM MORE THERAPY, PLAN IS TO RETEAM NEXT WEEK. PRN TYLENOL GIVEN FOR RIGHT HIP PAIN. FALL PRECAUTIONS AND HOURLY ROUNDING CONTINUE. NO ACUTE DISTRESS, WILL CONTINUE TO MONITO.
--- NOTE | 2017-02-01 15:50 | NUR ---
SW reviewed team conference summary with pt and pt dtr and pt son in law. Plan for pt to remain on rehab another week to continue therapies and for team to reteam on Monday with pt to dc on Wednesday 02/08 or 02/09 if needed. Pt was disappointed but understanding and in agreement with plan. SW discussed dc plan for pt to be able to return home with and support and services to follow. Pt dtr expressed possible concern if pt was unable to be alone at times or if pt would need any assistance bc pt was sick and would probably be unable to attend family training. SW to discuss plans with pt as well. SW to continue to follow to assist with safe dc planning.
[2017-02-01 20:26] VITALS: BP 144/84
--- NOTE | 2017-02-02 05:13 | NUR ---
ASSUMED PT CARE AT 1930. PT ALERT AND ORIENTED X4, POLITE AND COOPERATIVE WITH CARES. DENIES PAIN. PT SITTING UP IN RECLINER UNTIL AFTER TEN O'CLOCK NEWS. HS SNACK PROVIDED. PT UP WITH IN ASSIST, GAIT BELT AND WALKER. UP X1 TO VOID OVERNIGHT. TAKES MEDS WHOLE ONE AT A TIME WITH WATER. USES CALL LIGHT APPROPRIATELY. CALL LIGHT AND FREQUENTLY USED ITEMS WITHIN REACH. HOURLY ROUNDING IN PROGRESS, WILL CONTINUE TO MONITOR.
[2017-02-02 07:40] VITALS: BP 124/45
[2017-02-02 08:04] VITALS: BP 124/45
--- NOTE | 2017-02-02 14:09 | NUR ---
SW spoke with pt over the phone about team conference review/summary and dc planning. Pt open to pt being home but was uncertain if pt would be ready to return home if pt is not independent with tasks and if pt would not be safe to be alone bc she said that she will not be home 29/08. SW discussed details of services and discussed option for hired in home assistance as well. Pt said that they are unable to afford hiring assistance in the home and that if pt needed any assistance, she would rather see if pt could go to [facility] or a SNF near pt home in [place] at least for a while at dc. SW explained that SW could see if that would be able to be an option to have as another possible plan if pt does not make more progress in therapy over the next week to be able to be safe to dc home with . SW to continue to follow to assist with safe dc planning.
--- NOTE | 2017-02-02 18:48 | NUR ---
PT CARE ASSUMED THIS AM, ASSESSMENT AND VITAL SIGNS COMPLETED DOCUMENTED. PT CONTINUES TO WORK WITH THERAPY AND MAKE GRADUAL PROCESS. FAMILY IS HERE VISITING AND CONTINUES TO BE INVOLVED IN HIS CARE AND DISCHARGE PLANS. HOURLY ROUNDING AND FALL PRECAUTIONS IN PLACE.
[2017-02-02 21:30] VITALS: BP 156/58
--- NOTE | 2017-02-03 05:17 | NUR ---
ASSUMED PT CARE AT 1930. PT ALERT AND ORIENTED X4, POLITE AND COOPERATIVE WITH CARES. DENIES PAIN. PT IS SITTING UP IN RECLINER WATCHING TELEVISION. HS SNACK PROVIDED. [place] BAND, WEARS BILATERAL HEARING AIDS. PT UP WITH MIN ASSIST, GAIT BELT AND WALKER. UP TIMES X1 TO VOID OVERNIGHT. TAKES MEDS WHOLE ONE AT A TIME WITH WATER. USES CALL LIGHT APPROPRIATELY. CALL LIGHT AND FREQUENTLY USED ITEMS WITHIN REACH. HOURLY ROUDING IN PROGRESS, WILL CONTINUE TO MONITOR.
[2017-02-03 07:50] VITALS: BP 128/41
--- NOTE | 2017-02-03 16:26 | NUR ---
ASSUMED CARE AT 0730. ALERT ORIENTED PLEASANT COOPERATIVE. HX OF CVA. TRANSFERS WITH SBA G BELT WALKER AND AMBULATES TO BR TO VOID AND IS ABLE TO DO HYGEINE AND CLOTHING ADJUSTMENTS. PARTICIPATING IN THERAPIES THROUGHOUT THE DAY. TAKES MEDS ONE AT A TIME WITH WATER WITHOUT DIFFICULTY. FEEDS SELF WITH SET UP APPETITE GOOD. MEDICATED WITH TYLENOL FOR RT. HIP DISCOMFORT BEFORE THERAPIES START THIS A.M. USES CALL LIGHT APPROPRIATELY FOR ASSIST BED CHAIR ALARM FOR PT. SAFETY.
--- NOTE | 2017-02-03 16:32 | NUR ---
RICARDO sent referral to [facility] at pt family request as a possible back up plan if needed for pt dc if pt not ready to dc home by 02/08 or 02/09. SW to continue to follow to assist with safe dc planning.
[2017-02-03 20:10] VITALS: BP 131/59
--- NOTE | 2017-02-03 22:31 | NUR ---
ASSUMED CARE AT 1930. S/P CVA. VISITING WITH FAMILY IN DINING ROOM UNTIL AROUND 2030. WALKED WITH GAIT BELT, WALKER TO ROOM. VOIDS PER TOILET. DOES OWN HYGIENE AND CLOTHING ADJUSTMENTS. CHANGES INTO GOWN FOR HS. GENESIS WAS ABLE TO PUSH HIMSELF UP FROM CHAIR TO STANDING. DOES HAVE MORE TROUBLE RISING FROM TOILET TO STANDING POSITION AFTER VOIDING. VERY [place] BUT MAKES NEEDS KNOWN. DENIES PAIN. TAKES MEDS WHOLE ONE AT A TIME WITH WATER. CALL LITE IN REACH. BED ALARM ON. HOURLY ROUNDING CONTINUES.
--- NOTE | 2017-02-04 05:38 | NUR ---
SLEPT MOST OF THE NIGHT. UP TO VOID PER TOILET. DENIES PAIN. HOURLY ROUNDING CONTINUES. BED ALARM ON. CALL LITE IN REACH.
[2017-02-04 07:30] VITALS: BP 143/51
--- NOTE | 2017-02-04 16:23 | NUR ---
ASSUMED CARE AT 0730 PATIENT ALERT/ORIENTED, UP WITH ONE AND WALKER/GAIT BELT, HOURLY ROUNDING COMPLETED, TO DINING ROOM FOR MEALS, PARTICIPATED IN ALL THERAPIES, BED/CHAIR ALARMS IN PLACE, CALL LIGHT IN REACH. NO COMPLAINTS OF PAIN. CONTINUE WITH CURRENT PLAN OF CARE
[2017-02-04 20:30] VITALS: BP 148/60
--- NOTE | 2017-02-04 23:22 | NUR ---
ASSUMED CARE AT 1930. S/P CVA. PATIENT WAS IN DINING ROOM VISITING WITH FAMILY THEN WALKED TO HIS ROOM, 324. UP WITH SBA, GAIT BELT, WALKER. BETTER ABLE TO RISE FROM SITTING POSITION. TAKES PILLS WHOLE WITH WATER ONE AT A TIME. VOIDS PER TOILET, DOES OWN HYGIENE AND CLOTHING ADJUSTMENTS. [place], TAKES CARE OF OWN HEARING AIDES AND TEETH. DENIES PAIN. HOURLY ROUNDING CONTINUES. BED ALARM ON. CALL LITE IN REACH.
[2017-02-05 04:12] LABS: HEMATOCRIT 29.1 % (42.0-52.0); HEMOGLOBIN 9.8 gm/dL (14.0-18.0); MCH 31.7 pg (26.0-34.0); MCHC 33.6 g/dL (28.0-37.0); MCV 94.4 fL (80.0-100.0); MPV 8.8 fl. (7.2-11.1); NUCLEATED RBCS 0 /100WBC; PLATELET COUNT* 96 thou/uL (150-400); RBC 3.08 mil/uL (4.50-6.00); RDW-CV 14.1 % (10.5-14.5); WBC 5.1 thou/uL (4.0-11.0)
[2017-02-05 04:26] LABS: ALBUMIN 3.1 g/dL (3.4-5.0); CALCIUM 7.7 mg/dL (8.5-10.1); POTASSIUM 4.2 mmol/L (3.5-5.1); TOTAL BILIRUBIN 0.2 mg/dL (<0.1-1.0); TOTAL PROTEIN 5.8 g/dL (6.4-8.2)
[2017-02-05 05:28] LABS: ABSOLUTE BASOPHILS 0.1 thou/uL (0.0-0.2); ABSOLUTE EOSINOPHILS 0.4 thou/uL (0.0-0.7); ABSOLUTE MONOCYTES 0.4 thou/uL (0.0-1.2); ABSOLUTE NEUTROPHILS 3.3 thou/uL (1.6-8.1); ATYPICAL LYMPHS 5 %
[2017-02-05 05:29] LABS: HYPOCHROMASIA 1+; PLATELET ESTIMATE DECREASED
--- NOTE | 2017-02-05 05:38 | NUR ---
SLEPT ALL NIGHT LONG THUS FAR. TURNS SELF. HOURLY ROUNDS CONTINUE. CALL LITE IN REACH. BED ALARM ON. NO C/O PAIN.
[2017-02-05 07:45] VITALS: BP 134/47
[2017-02-05 18:05] LABS: % SATURATION 22 % (20-39); IRON 51 ug/dL (50-175)
--- NOTE | 2017-02-05 18:55 | NUR ---
AM ASSESSMENT AND VITAL SIGNS COMPLETED DOCUMENTED. PT HAS BEEN STABLE AND WITHOUT COMPLAINTS. PT AMBULATED TO AND FROM DINING ROOM FOR ALL THREE MEALS AND WATCHED THE [employer] GAME WITH HIS SON. PRN TYLENOL GIVEN X 1 FOR MILD BACK DISCOMFORT, RELIEF OBTAINED. PT IS NOW SITTING IN THE RECLINER, CALL LIGHT AND FREQUENTLY USED ITEMS WITHIN REACH. HOURLY ROUNDING AND FALL PRECAUTIONS CONTINUE.
[2017-02-05 20:18] VITALS: BP 140/39
--- NOTE | 2017-02-05 23:34 | NUR ---
ASSUMED CARE AT 1930. S/P CVA. PATIENT RESTING IN RECLINER AT CHANGE OF SHIFT. TAKES PILLS ONE AT A TIME WITH WATER WITHOUT DIFF. UP WITH ONE, GAIT BELT, WALKER, VOIDS PER TOILET. NEEDED MOD LIFTING ASSIST FROM RECLINER TO STANDING AND TOILET TO STANDING. ABLE TO DO HYGIENE AND CLOTHING ADJUSTMENTS. MEDICATED FOR PAIN AT HS, SEE APR. BILAT FEET EDEMATOUS, ELEVATED ON PILLOWS WHILE IN BED. REFUSES ASSIST WITH TURNS. HAD LARGE BM AT HS. DENIES PAIN. HOURLY ROUNDING CONTINUES. BED ALARM ON. CALL LITE IN REACH.
[2017-02-06 03:35] LABS: HEMATOCRIT 29.9 % (42.0-52.0); HEMOGLOBIN 9.8 gm/dL (14.0-18.0); MCH 31.1 pg (26.0-34.0); MCHC 32.8 g/dL (28.0-37.0); MCV 94.9 fL (80.0-100.0); MPV 8.3 fl. (7.2-11.1); RBC 3.15 mil/uL (4.50-6.00); RDW-CV 14.4 % (10.5-14.5); WBC 5.1 thou/uL (4.0-11.0)
[2017-02-06 03:50] LABS: CALCIUM 7.8 mg/dL (8.5-10.1); POTASSIUM 4.4 mmol/L (3.5-5.1)
--- NOTE | 2017-02-06 06:18 | NUR ---
SLEPT MOST OF THE NIGHT EXCEPT TO VOID. PATIENT CURRENTLY UP AND PUTTING IN HIS TEETH HAS VOIDED. NO C/O PAIN. HOURLY ROUNDS CONTINUE. BED ALARM ON. CALL LITE IN REACH.
[2017-02-06 07:46] VITALS: BP 136/57
--- NOTE | 2017-02-06 17:52 | NUR ---
ASSUMED CARE AT 0730, PATIENT ALERT/ORIENTED, TYLENOL GIVEN X1 THIS SHIFT FOR RIGHT HIP PAIN WITH GOOD RELIEF. UP WITH ONE AND WALKER/GAIT BELT. HOURLY ROUNDING COMPLETED, CALL LIGHT IN REACH, BED/CHAIR ALARMS IN PLACE. PARTICIPATED IN ALL THERAPIES TODAY. CONTINUE WITH CURRENT PLAN OF CARE
[2017-02-06 20:16] VITALS: BP 143/62
--- NOTE | 2017-02-07 05:07 | NUR ---
ASSUMED PT CARE AT 1930. PT ALERT AND ORIENTED X4, SITTING UP IN RECLINER VISITING WITH FAMILY. TAKES PILLS WHOLE ONE AT A TIME WITH WATER WITHOUT DIFFICULTY. UP WITH ONE, GAIT BELT AND WALKER. VOIDS PER TOILET. NEEDS MIN LIFTING ASSIST TO GET OUT OF RECLINER AND OFF OF TOILET. DOES OWN HYGIENE AND CLOTHING ADJUSTMENTS. TYLENOL GIVEN AT HS PER PT REQUEST. NO STOOL THIS SHIFT. CALL LIGHT AND FREQUENTLY USED ITEMS WITHIN REACH. USES CALL LIGHT APPROPRIATELY. HOURLY ROUNDING IN PROGRESS, WILL CONTINUE TO MONITOR.
--- NOTE | 2017-02-07 09:50 | NUR ---
RICARDO called and spoke with pt Karuna about dc planning and the need for family training. RICARDO explained that pt will be ready to dc Monday or as was previously discussed to home with and HH if not SNF and that insurance may not approve SNF. Karuna said that she was feeling better and she hoped she recovered from her cold prior to pt returning home. Karuna was open to family training now and said that she would discuss with her children to see if they could provide a ride. Karuna also suggested SW call pt dtr Thu. SW called pt dtr Thu and relayed above information and Thu discussed possibility that she will arrange with her work so that she could bring hTu for family training and be available to help pt return home. Thu said that she would figure out timing for family training and then call SW back to schedule time for tomorrow. SW to continue to follow to assist with safe dc planning.
--- NOTE | 2017-02-07 15:25 | NUR ---
ASSUMED CARE AT 0730. ALERT ORIENTED PLEASANT COOPERATIVE. HX OF CVA TRANSFERS WITH SBA G BELT WALKER AND AMBULATES TO BR TO VOID AND ALSO TO DR FOR ALL MEALS. FEEDS SELF AND TAKES MEDS WITHOUT DIFFICULTY 1 AT A TIME WITH WATER. APPETITE GOOD. MEDICATED WITH TYLENOL 2 TABS PO BEFORE THERAPIES. PARTICIPATING IN THERAPIES THROUGHOUT THE DAY. UP IN RECLINER AT BEDSIDE WHEN NOT IN THERAPIES. DAUGHTER HERE AT LUNCH VISITING PT.
[2017-02-07 20:55] VITALS: BP 135/50
--- NOTE | 2017-02-08 05:38 | NUR ---
ASSUMED CARES AT 1920. PT UP IN RECLINER. ALERT AND ORIENTED. PLEASANT. DENIES ANY PAIN. TAKES PILLS WHOLE ONE BY ONE. HE IS A MIN ASSIST WITH GAIT BELT AND WALKER. UP TO BATHROOM. DOES OWN CARES. USED CALL LIGHT APPROPRIATELY. BED ALARM ON. NO COMPLAINTS. SLEPT WELL MOST OF THE NIGHT.
[2017-02-08 08:12] VITALS: BP 151/58
[2017-02-08] MEDS ORDERED: ONGLYZA5 MG PO (14:33)
[2017-02-08] MEDS ORDERED: TIMOPTIC 0.5%1 EACH OPHTHALMIC (14:43)
[2017-02-08 14:45] VITALS: BP 151/58
[2017-02-08 14:58] VITALS: BP 151/58
--- NOTE | 2017-02-08 15:01 | NUR ---
SW met with pt and pt and pt dtr after family training. Pt and pt family felt family training went okay as well as the therapists did not express any concerns. Team conference was held today and team and pt/pt family determined pt ready to dc home today, Wednesday 02/08. SW called pt preference [facility] and also faxed referral and orders; agency accepted pt referral. RICARDO reiterated team's recommendations for pt to have someone available and with the patient at least initially after pt dc.
--- NOTE | 2017-02-08 16:28 | NUR ---
ASSUMED CARE AT 0730. ALERT ORIENTED PLEASANT COOPERATIVE. HX OF CVA. TRANSFERS WITH SBA AND AMBULATES TO BR TO VOID ABLE TO DO HYGEINE AND CLOTHING ADJUSTMENTS. FEEDS SELF WITH SET UP TAKES MEDS WITH WATER 1 AT A TIME WITHOUT DIFFICULTY. DENIES REQUESTS GAVE TYLENOL 2 TABS PO FOR RT. HIP DISCOMFORT BEFORE THERAPIES STARTED. USES CALL LIGHT APPROPRIATELY FOR ASSIST BED CHAIR ALARM FOR PT. SAFETY. FAMILY HERE FOR FAMILY TRAINING AT 1300. HAS PARTICIPATED IN THERAPIES TODAY. AMBULATED TO DR Gates 3 FOR MEALS APPETITE GOOD. DISCHARGED HOME AT 1630 PER PRIVATE CAR WITH BELONGINGS D/C INSTRUCTIONS HOME HEALTH. VERBALIZED UNDERSTANDING OF D/C INSTRUCTIONS ALLOWED TIME FOR QUESTIONS.
[2017-02-08 16:30] VITALS: BP 151/58
--- NOTE | 2017-02-14 15:43 | H ---
[place] [address] HISTORY AND PHYSICAL Name: LIVAN GONSALES [address] [id number] Admission: 01/13/17 Attend Phys: Marissa Quintana DO Discharge: 02/08/17 Date of : 32 Report #: [id number] THIS REPORT FOR: //name// CC: Lukas Quintana DATE OF SERVICE: 01/13/2017 HISTORY OF PRESENT ILLNESS: This is an 86-year-old right hand dominant male who presented to the Emergency Room at [facility] on 01/05/2017 after seeing his primary care physician with complaints of left-sided weakness for 2 days. He also had pressure in his head and difficulty breathing. He was diagnosed via CT and MRI with right parietal and posterior right frontal cerebrovascular accident. He also had some aphasia and dysphagia and video swallow did show aspiration with a straw. He does have multiple medical comorbidities including hypertension, diabetes and he is hard of hearing. He also is blind in the right eye. No significant changes since the preadmission screening. Previous level of function was independent to modified independent with activities of daily living. Current level of function is moderate to dependent with physical and occupational therapy with mild to moderate impairment of comprehension, expression, social interaction, and moderate impairment with problem solving and memory. Estimated length of stay is 19-21 days with discharge disposition to home where he has supervision and assistance of his spouse. PAST MEDICAL HISTORY: Hypertension, diabetes, hyperlipidemia, hard of hearing, anxiety, blind in the right eye, macular degeneration in the left eye, BPH, history of tobacco abuse, hyponatremia, hypocalcemia, thrombocytopenia. PAST SURGICAL HISTORY: Left total knee replacement, hernia repair. ALLERGIES: No known drug allergies. SOCIAL HISTORY: Former smoker. No alcohol or illicit drug use. FAMILY HISTORY: Diabetes and heart disease. REVIEW OF SYSTEMS: A 14-point review of systems is done and is negative except as mentioned in HPI, specifically no fever, chest pain, shortness of breath, abdominal pain or distention, change in bowel or change in bladder. PHYSICAL EXAMINATION: GENERAL: Alert, oriented, up in the chair. HEENT: Head: Atraumatic, normocephalic. Pupils equal on the left. On the right, he is blind. HEART: [place] [address] HISTORY AND PHYSICAL Name: LIVAN GONSALES Room: [address]#: [id number] Admission: 01/13/17 Attend Phys: Marissa Quintana DO Discharge: 02/08/17 Date of : 32 Report #: [id number] LUNGS: Symmetric expansion. ABDOMEN: Soft. NEUROLOGIC: Cranial nerves 2-12 are grossly intact with no focal neuro deficits, 3/5 strength in the left upper, 3/5 strength in the left lower, 5/5 strength in the right upper, 5/5 strength in the right lower. SKIN: Warm and dry. No rashes or lesions noted. ASSESSMENT: 1. Right hand dominant male with a right frontal and right parietal cerebrovascular accident with residual aphasia, dysphagia and some hemiparesis. Also, multiple medical comorbidities including hypertension, diabetes, hyperlipidemia. 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 2. Alterations in activities of daily living. 3. Multiple medical comorbidities requiring daily medical care. PLAN: 1. Admission to inpatient rehabilitation to facilitate safe discharge home. 2. PT, OT, speech, language, case management, nursing and HIMS to make evaluation and recommendations. 3. Carb controlled diet, diabetic. 4. Medications were reviewed, reconciled by myself and are available in the MAR. 5. Plan of care is pending and we will team him weekly. <ELECTRONICALLY SIGNED> By: Marissa Quintana DO 02/14/17 1543 [id number] Quintana DO /nt
== END 2017-02-08 16:30 | disposition home health service (06) | DRG 65 ==
LOC: M.REH 10:33
PROVIDERS: Family Medicine; Internal Medicine; ADMIT Physical Medicine & Rehabilitation
DX: I63.9 Cerebral infarction, unspecified (principal); E87.1 Hypo-osmolality and hyponatremia; R47.01 Aphasia; R13.10 Dysphagia, unspecified; H91.90 Unspecified hearing loss, unspecified ear; H35.30 Unspecified macular degeneration; H54.61 Unqualified visual loss, right eye, normal vision left eye; I10 Essential (primary) hypertension; E11.9 Type 2 diabetes mellitus without complications; E78.5 Hyperlipidemia, unspecified; F41.9 Anxiety disorder, unspecified; N40.0 Benign prostatic hyperplasia without lower urinary tract symptoms; Z96.652 Presence of left artificial knee joint; R27.0 Ataxia, unspecified; E78.00 Pure hypercholesterolemia, unspecified; E83.51 Hypocalcemia; D69.6 Thrombocytopenia, unspecified; L98.9 Disorder of the skin and subcutaneous tissue, unspecified; D64.9 Anemia, unspecified; Z87.891 Personal history of nicotine dependence; Z82.49 Family history of ischemic heart disease and other diseases of the circulatory system; Z83.3 Family history of diabetes mellitus

== ENCOUNTER 2019-10-30 13:21 | Inpatient (IN) | payer MEDICARE ==
[~2019-10-30] VITALS: Ht 182.9 cm; Wt 88.0 kg
[~2019-10-30 13:21] MED LIST changes: +TIMOPTIC 0.5%1 EACH OPHTHALMIC
[2019-10-30 13:35] VITALS: BP 126/41
[2019-10-30 13:50] LABS: ABSOLUTE EOSINOPHILS 0.3 thou/uL (0.0-0.7); ABSOLUTE MONOCYTES 0.6 thou/uL (0.0-1.2); ABSOLUTE NEUTROPHILS 4.6 thou/uL (1.6-8.1); BASOPHILS 0.4 %; EOSINOPHILS 3.8 %; HEMATOCRIT 32.5 % (42.0-52.0); HEMOGLOBIN 11.3 gm/dL (14.0-18.0); LYMPHOCYTES 15.8 %; MCH 37.2 pg (26.0-34.0); MCHC 34.8 g/dL (28.0-37.0); MCV 107.1 fL (80.0-100.0); MONOCYTES 8.9 %; MPV 8.2 fl. (7.2-11.1); NUCLEATED RBCS 0 /100WBC; PLATELET COUNT* 93 thou/uL (150-400); POLYS 71.1 %; RBC 3.04 mil/uL (4.50-6.00); RDW-CV 15.1 % (10.5-14.5); WBC 6.5 thou/uL (4.0-11.0)
[2019-10-30 14:00] LABS: CALCIUM 7.9 mg/dL (8.5-10.1); CREATININE 1.4 mg/dL (0.6-1.3); POTASSIUM 4.2 mmol/L (3.5-5.1)
[2019-10-30 14:02] LABS: APTT 26.1 Seconds (25.0-31.3); INR 1.1; PROTIME 11.4 Seconds (9.20-11.50)
[2019-10-30 14:13] LABS: ALBUMIN 3.6 g/dL (3.4-5.0); CK-MB MASS 1.5 ng/mL (<0.5-3.6); TOTAL BILIRUBIN 0.5 mg/dL (<0.1-1.0); TOTAL PROTEIN 6.9 g/dL (6.4-8.2)
--- NOTE | 2019-10-30 14:40 | EKG ---
[place] [address] ELECTROCARDIOGRAM REPORT Name: LIVAN GONSALES Room: [facility]#: [id number] Admission: 10/30/19 Attend Phys: Discharge: Date of : 32 Date of Service: 10/30/19 1342 Report #: [id number] THIS REPORT FOR: //name// [facility] ED Test Date: 2019-10-30 Test Time: 13:42:45 Pat Name: LIVAN GONSALES Department: Room: Gender: Sales Support Coordinator: : 1930 Requested By: Eben Meza Order Number: [id number] MD: Remington Segura Measurements Intervals [place] Rate: 57 P: 47 GA: 192 QRS: 80 QRSD: 163 T: 24 QT: 460 QTc: 448 Interpretive Statements Sinus rhythm Right bundle branch block Compared to ECG 01/05/2017 15:20:02 Right bundle-branch block now present Electronically Signed On 10-30-2019 14:40:15 CDT by Remington Segura [email or web address] <ELECTRONICALLY SIGNED> By: Remington Segura MD, [facility] 10/30/19 1440 1342 1342 Remington Segura MD, [facility] /EPI
[2019-10-30] MEDS ORDERED: ONGLYZA5 MG PO (15:23)
[2019-10-30] MEDS ORDERED: LEVO-T50 MCG PO (15:23)
[2019-10-30] MEDS ORDERED: SERTRALINE HCL100 MG PO (15:24)
[2019-10-30] MEDS ORDERED: SIMVASTATIN80 MG PO (15:24)
[2019-10-30] MEDS ORDERED: ZESTORETIC 20-1 EAC3 PO (15:25)
[2019-10-30] MEDS ORDERED: LASIX 40 MG TAB40 MG PO ×2 (15:25→15:30)
[2019-10-30] MEDS ORDERED: TOPROL XL50 MG PO (15:25)
[2019-10-30] MEDS ORDERED: ALPRAZOLAM XR3 MG PO (15:26)
[2019-10-30] MEDS ORDERED: TERAZOSIN HCL10 MG PO (15:26)
[2019-10-30] MEDS ORDERED: BENADRYL25 MG PO (15:28)
[2019-10-30] MEDS ORDERED: ONE TOUCH VERI EAC TOP (15:28)
[2019-10-30] MEDS ORDERED: CLOTRIMAZOLE-321 GM TOP (15:28)
[2019-10-30] MEDS ORDERED: REFRESH OPTIVE10 M1 INTRAOCULR (15:29)
[2019-10-30] MEDS ORDERED: FISH OIL 1,0001 EAC9 PO (15:29)
[2019-10-30] MEDS ORDERED: LUMIGAN5 ML OPHTHALMIC (15:30)
[2019-10-30] MEDS ORDERED: ASPIRIN EC81 M1 PO (15:30)
[2019-10-30] MEDS ORDERED: GEMFIBROZIL 60600 MG PO (15:31)
[2019-10-30] MEDS ORDERED: TRIAMCINOLONE 080 G3 TOP (15:31)
[2019-10-30] MEDS ORDERED: FINASTERIDE5 MG PO (15:32)
[2019-10-30 16:48] VITALS: BP 151/59
[2019-10-30 17:10] VITALS: BP 185/67
[2019-10-30 17:24] LABS: URINE BILIRUBIN NEGATIVE (Negative); URINE BLOOD NEGATIVE (Negative); URINE CLARITY CLEAR; URINE COLOR YELLOW; URINE GLUCOSE-RANDOM NEGATIVE (Negative); URINE KETONES NEGATIVE (Negative); URINE LEUKOCYTES-REFLEX NEGATIVE (Negative); URINE NITRITE-REFLEX NEGATIVE (Negative); URINE PROTEIN NEGATIVE (Negative); URINE SPECIFIC GRAVITY 1.015 (1.005-1.030)
[2019-10-30 17:32] LABS: AMP/METHAMP Negative (Negative); BARBITURATES Negative (Negative); BENZODIAZEPINES POSITIVE (Negative); COCAINE Negative (Negative); METHADONE Negative (Negative); OPIATES Negative (Negative); PCP Negative (Negative); THC Negative (Negative)
[2019-10-31] VITALS: BP 155/59
[2019-10-31 04:00] VITALS: BP 109/58
[2019-10-31 08:00] VITALS: BP 154/68
[2019-10-31 08:14] LABS: HEMATOCRIT 31.5 % (42.0-52.0); HEMOGLOBIN 11.2 gm/dL (14.0-18.0); MCH 37.3 pg (26.0-34.0); MCHC 35.4 g/dL (28.0-37.0); MCV 105.3 fL (80.0-100.0); MPV 8.1 fl. (7.2-11.1); RBC 2.99 mil/uL (4.50-6.00); RDW-CV 15.1 % (10.5-14.5); WBC 5.5 thou/uL (4.0-11.0)
[2019-10-31 08:21] LABS: CALCIUM 8.2 mg/dL (8.5-10.1); CREATININE 1.1 mg/dL (0.6-1.3)
[2019-10-31 12:39] VITALS: BP 171/59
--- NOTE | 2019-10-31 13:44 | 2DMMODE ---
[place] [address] 2 D/M-MODE ECHOCARDIOGRAM Name: LIVAN GONSALES Room: [address] IN [facility]#: [id number] Admission: 10/30/19 Attend Phys: Hamida Betancourt, Discharge: Date of : 32 Date of Service: 10/31/19 1343 Report #: [id number] THIS REPORT FOR: cc: Lukas Srinivasan Bradley L. DO Liston, Michael J. MD [facility] ~ APPROVED REPORT Study performed: 10/31/2019 10:22:06 EXAM: Comprehensive 2D, Doppler, and color-flow Echocardiogram Patient Location: In-Patient Room #: [facility] Status: routine BSA: 2.10 HR: 57 bpm BP: 109/58 mmHg Rhythm: NSR Other Information Study Quality: Good Indications Bradycardia 2D Dimensions IVSd: 9.22 (7-11mm) LVOT Diam: 19.78 (18-24mm) LVDd: 48.86 mm PWd: 8.88 (7-11mm) Ascending Ao: 36.53 (22-36mm) LVDs: 28.17 (25-40mm) Aortic Root: 39.04 mm Volumes Left Atrial Volume (Systole) LA ESV Index: 41.50 mL/m2 Aortic Valve AoV Peak Robert.: 1.91 m/s AO Peak Gr.: 14.63 mmHg LVOT Max P.81 mmHg AO Mean Gr.: 8.93 mmHg LVOT Mean P.05 mmHg LVOT Max V: 1.10 m/s AO V2 VTI: 50.90 cm LVOT Mean V: 0.65 m/s AUGUSTINE (VTI): 1.93 cm2 LVOT V1 VTI: 31.96 [place] [address] 2 D/M-MODE ECHOCARDIOGRAM Name: LIVAN GONSALES Room: [address]#: [id number] Admission: 10/30/19 Attend Phys: Hamida Betancourt, Discharge: Date of : 32 Date of Service: 10/31/19 1343 Report #: [id number] Mitral Valve E/A Ratio: 1.04 MV Decel. Time: 236.20 ms MV E Max Robert.: 0.69 m/s MV PHT: 68.50 ms MVA (PHT): 3.21 cm2 TDI E/Lateral E': 7.67 E/Medial E': 8.63 Medial E' Robert.: 0.08 m/s Lateral E' Robert.: 0.09 m/s Pulmonary Valve PV Peak Robert.: 0.96 m/s PV Peak Gr.: 3.71 mmHg Tricuspid Valve RAP Estimate: 5.00 mmHg TR Peak Gr.: 25.11 mmHg RVSP: 30.00 mmHg PA Pressure: 30.00 mmHg Left Ventricle The left ventricle is normal size. There is left ventricular systolic dyssynergy noted consistent with underlying bundle branch block. There is normal left ventricular wall thickness. Left ventricular systolic function is normal. LVEF is 55-60%. Transmitral Doppler flow pattern suggests impaired LV relaxation. Right Ventricle The right ventricle is normal size. The right ventricular systolic function is normal. Atria Left atrium is mildly dilated. Right atrium is mildly dilated. Aortic Valve The Aortic valve is sclerotic. Trace aortic regurgitation. Mild aortic stenosis. Mitral Valve There is mitral annular calcification. Trace mitral regurgitation. No evidence of mitral valve stenosis. Tricuspid Valve The tricuspid valve is normal in structure. Trace tricuspid regurgitation. The RVSP is 30-[place] [address] 2 D/M-MODE ECHOCARDIOGRAM Name: LIVAN GONSALES Room: [address]#: [id number] Admission: 10/30/19 Attend Phys: Hamida Betancourt, Discharge: Date of : 32 Date of Service: 10/31/19 1343 Report #: [id number] Pulmonic Valve The pulmonary valve is normal in structure. Trace pulmonic regurgitation. Great Vessels The aortic root is normal in size. IVC is normal in size and collapses >50% with inspiration. Pericardium There is no pericardial effusion. <Conclusion> The left ventricle is normal size. There is normal left ventricular wall thickness. Left ventricular systolic function is normal. LVEF is 55-60%. Transmitral Doppler flow pattern suggests impaired LV relaxation. Left atrium is mildly dilated. Right atrium is mildly dilated. The Aortic valve is sclerotic. Trace aortic regurgitation. Mild aortic stenosis. There is mitral annular calcification. Trace mitral regurgitation. Trace tricuspid regurgitation. The RVSP is 30-35 mmHg. IVC is normal in size and collapses >50% with inspiration. <ELECTRONICALLY SIGNED> By: Mike Downey MD, FACC 10/31/19 1343 1343 1343 Mike Downey MD, FACC /INF
[2019-10-31 16:10] VITALS: BP 166/64
[2019-10-31 20:10] VITALS: BP 174/64
[2019-11-01] VITALS: BP 163/70
[2019-11-01 04:00] VITALS: BP 113/68; BP 133/86
[2019-11-01 08:30] VITALS: BP 174/52
[2019-11-01 10:55] LABS: HEMATOCRIT 35.9 % (42.0-52.0); HEMOGLOBIN 12.5 gm/dL (14.0-18.0); MCHC 34.7 g/dL (28.0-37.0); MCV 106.6 fL (80.0-100.0); MPV 8.4 fl. (7.2-11.1); RBC 3.37 mil/uL (4.50-6.00); RDW-CV 15.3 % (10.5-14.5); WBC 6.9 thou/uL (4.0-11.0)
[2019-11-01 11:15] LABS: ALBUMIN 3.7 g/dL (3.4-5.0); CALCIUM 8.5 mg/dL (8.5-10.1); CREATININE 1.1 mg/dL (0.6-1.3); POTASSIUM 4.1 mmol/L (3.5-5.1); TOTAL BILIRUBIN 0.6 mg/dL (<0.1-1.0); TOTAL PROTEIN 7.3 g/dL (6.4-8.2)
[2019-11-01 16:00] VITALS: BP 103/53
[2019-11-01 20:00] VITALS: BP 122/48
[2019-11-02 02:06] LABS: GLYCOHEMOGLOBIN (HGB A1C) 6.9 % (4.8-5.6)
[2019-11-02 08:05] VITALS: BP 157/57
[2019-11-02 16:00] VITALS: BP 125/43
[2019-11-02 20:00] VITALS: BP 110/56
[2019-11-03 08:33] VITALS: BP 129/49
[2019-11-03 20:00] VITALS: BP 127/59
[2019-11-04 07:30] VITALS: BP 122/59
[2019-11-04] MEDS ORDERED: HUMALOG100 UNIT/1 SUBQ (07:47)
[2019-11-04] MEDS ORDERED: MEN-PHOR LOTIO222 M1 TOP (07:47)
[2019-11-04] MEDS ORDERED: LIPITOR 40 MG T40 M1 PO (07:47)
[2019-11-04 16:00] VITALS: BP 106/52
[2019-11-04 19:48] VITALS: BP 131/46
[2019-11-05 07:30] VITALS: BP 139/50
[2019-11-05 08:00] VITALS: BP 139/50
[2019-11-05 13:01] LABS: HEMATOCRIT 35.4 % (42.0-52.0); HEMOGLOBIN 12.2 gm/dL (14.0-18.0); MCH 36.6 pg (26.0-34.0); MCHC 34.3 g/dL (28.0-37.0); MCV 106.5 fL (80.0-100.0); MPV 8.1 fl. (7.2-11.1); RBC 3.33 mil/uL (4.50-6.00); RDW-CV 15.8 % (10.5-14.5); WBC 5.8 thou/uL (4.0-11.0)
[2019-11-05 13:05] LABS: CALCIUM 7.9 mg/dL (8.5-10.1); CREATININE 1.6 mg/dL (0.6-1.3); POTASSIUM 3.9 mmol/L (3.5-5.1)
[2019-11-05 16:00] VITALS: BP 100/58
[2019-11-05 19:51] VITALS: BP 137/56
[2019-11-06 04:42] LABS: HEMATOCRIT 31.6 % (42.0-52.0); HEMOGLOBIN 11.1 gm/dL (14.0-18.0); MCH 37.2 pg (26.0-34.0); MCV 106.4 fL (80.0-100.0); MPV 8.8 fl. (7.2-11.1); RBC 2.97 mil/uL (4.50-6.00); RDW-CV 15.1 % (10.5-14.5); WBC 6.8 thou/uL (4.0-11.0)
[2019-11-06 04:56] LABS: CREATININE 1.2 mg/dL (0.6-1.3); POTASSIUM 4.4 mmol/L (3.5-5.1)
[2019-11-06 08:19] VITALS: BP 138/55
[2019-11-06 09:19] VITALS: BP 138/55
== END 2019-11-06 15:45 | DRG 682 ==
LOC: M.ERS 13:21 → M.TBA-ER 14:44 → M.3W 14:44 → M.2W 14:44 → M.3W 11-01 08:36
PROVIDERS: Family Medicine; ADMIT Internal Medicine; ATTEND Internal Medicine
DX: N17.9 Acute kidney failure, unspecified (principal); G92 Toxic encephalopathy; I67.4 Hypertensive encephalopathy; I12.9 Hypertensive chronic kidney disease with stage 1 through stage 4 chronic kidney disease, or unspecified chronic kidney disease; N18.2 Chronic kidney disease, stage 2 (mild); F03.90 Unspecified dementia, unspecified severity, without behavioral disturbance, psychotic disturbance, mood disturbance, and anxiety; F41.9 Anxiety disorder, unspecified; R53.1 Weakness; E11.22 Type 2 diabetes mellitus with diabetic chronic kidney disease; E78.00 Pure hypercholesterolemia, unspecified; R00.1 Bradycardia, unspecified; R91.8 Other nonspecific abnormal finding of lung field; Z96.652 Presence of left artificial knee joint; Z20.828 Contact with and (suspected) exposure to other viral communicable diseases; Z79.82 Long term (current) use of aspirin; Z79.899 Other long term (current) drug therapy; Z88.8 Allergy status to other drugs, medicaments and biological substances; Z86.73 Personal history of transient ischemic attack (TIA), and cerebral infarction without residual deficits